=== PATIENT | male | born 1940 | race Caucasian/White ===

== ENCOUNTER → 2017-10-03 09:40 | Outpatient (CLI) | payer MEDICARE, OTHER, SELFPAY ==
[2017-10-03 13:10] LABS: Cholesterol 202 mg/dL (50-200); HDL Cholesterol 45 mg/dL (40-60); LDL CHOLESTEROL 80 mg/dL (<100); Triglyceride 307 mg/dL (30-150)
== END ==
PROVIDERS: PCP Emergency Medicine; Visit Provider Emergency Medicine
DX: E78.5 Hyperlipidemia, unspecified (principal); R73.09 Other abnormal glucose
CPT/HCPCS: 36415; 80061; 83721; 83036

== ENCOUNTER → 2017-10-08 11:00 | Outpatient (CLI) | payer MEDICARE, OTHER, SELFPAY | PROVIDERS: PCP Emergency Medicine; Visit Provider Internal Medicine Interventional Cardiology | DX: I21.4 Non-ST elevation (NSTEMI) myocardial infarction (principal); E78.5 Hyperlipidemia, unspecified; G47.30 Sleep apnea, unspecified | CPT/HCPCS: 99213 ==

== ENCOUNTER 2018-02-20 10:30 | Outpatient (CLI) | payer MEDICARE, SELFPAY ==
[2018-02-20 11:37] LABS: HCT 42.3 % (40.0-50.0); HGB 14.1 g/dL (13.5-17.5); Mean Corp. HGB Concentration 33.3 g/dL (32.0-36.0); Mean Corpuscular Hemoglobin 30.4 pg (27.0-33.0); Mean Corpuscular Volume 91.2 fL (80-95); Mean Platelet Volume 10.8 fL (8.0-11.0); Platelet Count 184 x1000/uL (130-400); RBC 4.64 m/cumm (4.50-6.00); RBC Distribution Width 13.2 % (11.8-14.1); White Blood Cell Count 6.25 k/cumm (4.4-10.8)
[2018-02-20 12:04] LABS: ALT 34 U/L (12-78); AST 23 U/L (15-37); Albumin 3.3 g/dL (3.4-5.0); Alkaline Phosphatase 100 U/L (46-116); Amylase 39 U/L (25-115); Anion Gap 7.7 mmol/L (3-11); BUN 12 mg/dL (7-18); Bilirubin, Total 0.4 mg/dL (0.2-1.0); CO2 26.3 mmol/L (21.0-32.0); Calcium 8.6 mg/dL (8.5-10.1); Chloride 103 mmol/L (98-107); Glucose 138 mg/dL (70-100); Lipase 151 U/L (73-393); Potassium 4.3 mmol/L (3.5-5.1); Sodium 137 mmol/L (136-145)
== END 2018-02-20 10:50 ==
PROVIDERS: PCP Emergency Medicine; Visit Provider Emergency Medicine
DX: K21.9 Gastro-esophageal reflux disease without esophagitis (principal); E78.5 Hyperlipidemia, unspecified
CPT/HCPCS: 36415; 80053; 83690; 85027; 82150

== ENCOUNTER 2018-03-21 02:34 | Outpatient (CLI) | payer MEDICARE, OTHER, SELFPAY ==
[2018-03-21 10:37] LABS: ALT 34 U/L (12-78); AST 16 U/L (15-37); Albumin 3.3 g/dL (3.4-5.0); Alkaline Phosphatase 98 U/L (46-116); Bilirubin, Total 0.6 mg/dL (0.2-1.0); Cholesterol 202 mg/dL (50-200); HDL Cholesterol 49 mg/dL (40-60); LDL CHOLESTEROL 63 mg/dL (<100); Triglyceride 283 mg/dL (30-150)
[2018-03-21 10:52] LABS: Bilirubin, Direct 0.11 mg/dL (0.00-0.20)
== END 2018-03-21 02:54 ==
PROVIDERS: PCP Emergency Medicine; Visit Provider Internal Medicine Interventional Cardiology
DX: E78.5 Hyperlipidemia, unspecified (principal)
CPT/HCPCS: 36415; 80061; 80076; 83721

== ENCOUNTER 2018-09-02 00:39 | Outpatient (CLI) | payer MEDICARE, OTHER, SELFPAY ==
--- NOTE | 2018-09-02 13:24 | DI.CT_ITS ---
SYMPTOM/DIAGNOSIS: 5 MONTHS LEFT SCIATICA. BACK PAIN M54.[address] LUMBAR SPINE AND SACROILIAC JOINTS: Multiple contiguous axial images of the lumbar spine through the sacroiliac joints were obtained. Sagittal and coronal reformatted images were evaluated on the Siemens work station. At L5-S1 there is a vacuum disc, end plate sclerosis and end plate osteophytes. Disc space narrowing is seen. At L4-L5 there is a vacuum disc and mild disc space narrowing. End plate osteophytes are present. No spondylolysis or spondylolisthesis is seen. No suspicious lytic or sclerotic lesions are identified. There are mild degenerative changes seen at the sacroiliac joints. No ankylosis or erosions are identified. At L5-S1 there is mild to moderate central spinal canal stenosis and mild right and moderate left neuroforaminal stenosis. At L4-L5, no significant central spinal canal stenosis is seen. There is moderate bilateral neuroforaminal stenosis. At L3-L4 there is a diffuse disc bulge resulting in mild narrowing of the central spinal canal. There is mild bilateral neuroforaminal narrowing present. At L2-L3 there is no focal disc herniation or significant central spinal canal or neuroforaminal stenosis. At L1-L2 there is no focal disc herniation, central spinal canal or neuroforaminal stenosis. IMPRESSION: 1. 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 2. Degenerative changes seen at the sacroiliac joints. No evidence of ankylosis or erosion.
== END 2018-09-02 00:59 ==
PROVIDERS: PCP Emergency Medicine; Visit Provider Emergency Medicine
DX: M54.42 Lumbago with sciatica, left side (principal); M47.27 Other spondylosis with radiculopathy, lumbosacral region; M53.3 Sacrococcygeal disorders, not elsewhere classified
CPT/HCPCS: 72131

== ENCOUNTER 2018-10-29 13:18 | Outpatient (CLI) | payer MEDICARE, OTHER, SELFPAY ==
--- NOTE | 2018-10-29 06:00 | DI.RAD_ITS ---
EXAM: XR PAIN CLINIC LUMBAR SP 2V CLINICAL HISTORY: Lumbar Epidural Steroid Injection. TECHNIQUE: 2D and realtime digital imaging was performed. COMPARISON: No exams were available for comparison FINDINGS: Images submitted from the pain clinic demonstrate positioning of a needle over the midline at the lev el the L5-S1 disc in conjunction with an epidural steroid injection. Please see Dr. Sam's procedure report for further information. IMPRESSION:
[2018-10-29 13:25] VITALS: BP 147/81; PULSE 60; RESP 20; TEMP 37.1; O2SAT 98
[2018-10-29 13:53] VITALS: PULSE 58; RESP 17; O2SAT 95
--- NOTE | 2018-10-29 13:56 | PDOC.PAIN ---
Pain Clinic Procedure Note Procedure Note Procedure Note: Lumbar Epidural Steroid Injection Procedure Note COMMENTS:I did review his note from Ms. Bentley and his most recent lumbar spine MRI. DX: Lumbosacral radiculitis JUNAID MAYER has been referred to the [facility] for lumbar epidural steroid injection. The patient was greeted by the nurse who verified patients name and . Patient was then taken to the fluoroscopy suite. The patient was interviewed and the medial record reviewed. There were no medical, pharmacologic, radiographic, or other structural contraindications to attempting fluoroscopically guided lumbar epidural steroid injection. Risks and expected side effects as well as potential benefits of the procedure were reviewed and voiced concerns expressed. The patient consent form was signed and witnessed. Standard patient time-out procedure was performed. LThe patient was placed in the prone position on the fluoroscopy table and automated blood pressure cuff and pulse oximeter applied. The skin entry point for entering/approaching the epidural space at L5-S1 and marked. Following thorough chlorhexadine preparation of the skin and draping and 1% lidocaine infiltration of the skin entry point and subcutaneous tissues, a 18 gauge Touhy needle was placed under fluoroscopic guidance and with loss of resistance technique into the epidural space. Needle tip placement and depth were aided and confirmed by fluoroscopy. There was no paresthesia or return of blood or CSF through the needle. 1 cc's of Omnipaque 240 was injected with clear epidural spread confirmed with fluoroscopy. 80mg depomedrol was injected. There was not any unusual discomfort expressed by JUNAID MAYER. Patient's vital signs were stable throughout the procedure and were as recorded in nursing records. Follow up plans and appointments were discussed with patient. Post procedure instruction was given as documented in nursing records and having met discharge criteria and was discharged from the [facility]. COMMENTS: If this procedure is helpful, it can be completed up to 3 times per 12 months.
[2018-10-29] MEDS: methylPREDNISolone ACETATE 40 MG/ML VIAL IJ (13:57)
[2018-10-29] MEDS: Omnipaque 240 MG/ML 50 ML BTL IJ (13:58)
== END 2018-10-29 13:38 ==
PROVIDERS: PCP Emergency Medicine; Visit Provider Preventive Medicine Occupational Medicine
DX: M54.17 Radiculopathy, lumbosacral region (principal)
CPT/HCPCS: 62323; 72100; J1030; Q9967

== ENCOUNTER 2019-01-14 11:39 | Outpatient (CLI) | payer MEDICARE, OTHER, SELFPAY ==
[2019-01-14 11:49] VITALS: BP 129/82; PULSE 61; RESP 18; TEMP 36.8; O2SAT 98
[2019-01-14] MEDS: Omnipaque 240 MG/ML 50 ML BTL IJ (12:17)
[2019-01-14] MEDS: Dexamethasone Sod. Phos./Pres-Free 10 MG/ML VIAL IJ (12:17)
--- NOTE | 2019-01-14 12:20 | PDOC.PAIN_ITS ---
Pain Clinic Procedure Note Procedure Note Procedure Note: PROCEDURE NOTE Transforaminal Epidural Steroid Injection with Fluoroscopic Guidance at left L5 Chief Complaint: left leg pain, posterior buttock, calf pain Pre-operative diagnosis: lumbar radiculopathy Post-operative diagnosis: same as above JUNAID MAYER has been referred to the [facility] for Lumbar Transforaminal Epidural Steroid Injection left L5 TFESI COMMENTS: Pre-procedure VAS: 5/10 to the left leg. Follow up plan: if this fails to achieve significant pain relief, follow up with Ms Tatiana Bentley APRN. JUNAID MAYER was greeted by the nurse who verified patients name and . Patient was then taken to the fluoroscopy suite. JUNAID was interviewed and the medical record reviewed. There were no medical, pharmacologic, radiographic or other structural contraindications to attempting fluoroscopically guided transforaminal lumbar epidural steroid injection. The risks, benefits, and potential side effects were reviewed with the patient. Risk include, but not limited to, post dural puncture, headache, infection, nerve injury, allergic reaction, possible increase in symptoms over the ensuing 24 to 48 hours, and paralysis. The patient appeared to understand, questions were answered and the patient agreed to proceed. Once I obtained informed verbal consent, the printed consent form was signed by the patient and myself. Standard time-out procedure was performed. TECHNIQUE: After informed written consent was obtained the patient was placed in the prone position. The lumbar spine was prepped with chloraprep and draped. Sterile technique was observed during the entire procedure ( cap, gloves, and mask were worn). Vitals signs were monitored throughout the procedure. The left side was marked with a radioopaque marker. The skin and subcutaneous structures were anesthetized with lidocaine 1% to a total volume of 3 ML at each level. Under fluoroscopic guidance, in ipsilateral oblique view, co-axial approach, 22 gauge 5'' spinal needle(s) were advanced to the base of the L5. pedicle(s). The needle(s) were advanced to the superio-posterior aspect of the neural perfecto en under lateral view. Oblique and AP views were rechecked. Under AP view Omnipaque 240 1 cc's was injected while visualized with fluoroscopy. There was no evidence of intravascular uptake, the epidural space was delineated. 15 mg Dexamethasone was injected after negative aspiration, at each level, followed by lidocaine 1% 1.0-ML at each level. (49 cc of Omnipaque was wasted) Outcome: The patient tolerated the procedure well and had stable vital signs. The patient noted after getting up after the procedure that their left leg pain was at a 3 out of 10 level. Follow up plans and appointments were discussed with JUNAID . 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 The patient received written instructions as documented in nursing records. Disposition: JUNAID was discharged from the procedure suite without new neurological complaints. Follow-up: Follow up with as scheduled or PRN. I personally performed the entire procedure. ROGER BECKER MD ABPN-subspecialty board certification in Pain Medicine Attending Physician-Pain Management
[2019-01-14 12:23] VITALS: BP 146/90; PULSE 69; RESP 16; O2SAT 96
--- NOTE | 2019-01-14 13:15 | DI.RAD_ITS ---
EXAM: XR PAIN CLINIC LUMBAR SP 2V CLINICAL HISTORY: Dx: Lumbar Radiculopathy TECHNIQUE: Realtime digital imaging was performed. Fluoro time: 36.6 sec, 15.29 mGy COMPARISON: No exams were available for comparison FINDINGS: Fluoroscopy was utilized by Dr. Mendenhall during the performance of a transforaminal steroid injection. Ple ase refer to the procedure report for complete details.
== END 2019-01-14 11:59 ==
PROVIDERS: PCP Emergency Medicine; Visit Provider Internal Medicine
DX: M54.16 Radiculopathy, lumbar region (principal)
CPT/HCPCS: 64483; 72100; Q9967

== ENCOUNTER 2019-04-09 12:07 | Outpatient (CLI) | payer MEDICARE, OTHER, SELFPAY ==
[2019-04-09 12:46] LABS: HCT 43.4 % (40.0-50.0); HGB 14.5 g/dL (13.5-17.5); Mean Corp. HGB Concentration 33.4 g/dL (32.0-36.0); Mean Corpuscular Hemoglobin 30.3 pg (27.0-33.0); Mean Corpuscular Volume 90.6 fL (80-95); Mean Platelet Volume 10.8 fL (8.0-11.0); Platelet Count 203 x1000/uL (130-400); RBC 4.79 m/cumm (4.50-6.00); RBC Distribution Width 13.4 % (11.8-14.1); White Blood Cell Count 7.72 k/cumm (4.4-10.8)
[2019-04-09 13:26] LABS: Anion Gap 7.8 mmol/L (3-11); BUN 13 mg/dL (7-18); CO2 28.2 mmol/L (21.0-32.0); CREATININE 0.73 mg/dL (0.70-1.30); Calcium 9.2 mg/dL (8.5-10.1); Chloride 103 mmol/L (98-107); Glucose 106 mg/dL (74-106); Potassium 4.5 mmol/L (3.5-5.1); Sodium 139 mmol/L (136-145)
== END 2019-04-09 12:27 ==
PROVIDERS: PCP Emergency Medicine; Visit Provider Family Medicine
DX: I10 Essential (primary) hypertension (principal); M54.16 Radiculopathy, lumbar region; Z01.818 Encounter for other preprocedural examination
CPT/HCPCS: 36415; 80048; 85027

== ENCOUNTER → 2019-10-03 10:59 | Outpatient (BNVA) | payer MEDICARE, OTHER, SELFPAY | PROVIDERS: PCP Emergency Medicine; Referring Provider Emergency Medicine; Visit Provider Physical Therapy Assistant | DX: Z12.11 Encounter for screening for malignant neoplasm of colon (principal); Z86.010 Personal history of colon polyps; I10 Essential (primary) hypertension ==

== ENCOUNTER 2019-10-31 06:17 | Day surgery (SDC) | payer MEDICARE, OTHER, SELFPAY ==
[2019-10-31 06:35] VITALS: BP 141/80; PULSE 65; RESP 16; TEMP 36.4; O2SAT 95
[2019-10-31] MEDS: Lactated Ringers 1,000 ML 80 ML IV (07:02)
--- NOTE | 2019-10-31 07:22 | W.PM.DSUDISC ---
Discharge Plan Disposition Patient Disposition: HOME Condition: Good Discharge Details Reason For Visit: Colonoscopy Attending Provider: Mily Butt Primary Care Provider: Candido Figueroa Home Meds and New Rx's Prescriptions: Continued atorvastatin 80 mg tablet 80 mg PO QHS RF: 0 triamcinolone acetonide 80 GM ointment 80 gm Topical BID Qty: 1 RF: 2 aspirin [Aspir-81] 81 MG tablet,delayed release (DR/EC) 81 mg PO DAILY Qty: 90 RF: 4 nitroglycerin 0.4 mg tablet, sublingual 0.4 mg Sublingual PRN Qty: 20 RF: 1 acetaminophen 500 mg capsule 1,000 mg PO QID PRNRF: 0 finasteride 5 mg tablet 5 mg PO DAILY Qty: 90 RF: 3 metoprolol succinate 50 mg tablet extended release 24 hr 50 mg PO DAILY Qty: 90 RF: 3 omeprazole 40 mg capsule,delayed release(DR/EC) 40 mg PO DAILY Qty: 90 RF: 3 escitalopram oxalate 20 mg tablet 20 mg PO DAILY Qty: 90 RF: 3 Discontinued polyethylene glycol 3350 17 gram/dose powder 238 g PO ONCE Qty: 238 RF: 0 bisacodyl [Dulcolax (bisacodyl)] 5 mg tablet,delayed release (DR/EC) 5 mg PO ONCE Qty: 4 RF: 0 Discharge Instructions Additional Instructions: Findings: Two small polyps were removed. My office will send a letter with biopsy results. Follow up: If the biopsy results show an adenomatous polyp, you may consider a colonoscopy again in 5-7 years depending on overall health. Please call if you develop: fevers >101.5 Nausea or Vomiting Abdominal pain that is not transient DAY SURGERY UNIT POST COLONOSCOPY INSTRUCTIONS 1. Because there will be medication in your system for the next 24 hours, you may feel a little sleepy. Your coordination will be affected. Therefore: a. Do not drive or operate dangerous equipment for 24 hours. b. Do not drink alcohol beverages for 24 hours (not even beer). c. Plan to go home and rest for the day. 2. Generally there are no restrictions on your activity after a day or so has gone by, but you may feel a bit fatigued for a few days. 3 After you arrive home you may have a light meal and return to a normal diet as you can tolerate it without feeling sick to your stomach. 4. After surgery, you may feel pain or discomfort. This should be only transient, but if it persists please contact your doctor. 5. If there are any questions regarding the findings of your procedure, please feel free to contact your doctor. 6. If you are unable to contact your doctor with a problem, contact the hospital at [phone]. 7. Continue all your regular medications unless directed otherwise. I understand the above instructions and have no questions. Signature of Patient or Responsible Adult Escort Date/Time Name of Responsible Adult Escort Signature of Nurse Date/Time Activity:: Activity as Tolerated Diet:: As Tolerated Discharge Orders Discharge Orders: Discharge Order (Routine); Ordered 10/31/19 Ordered By: Mily Butt DS: Diagnosis Discharge Diagnosis (1) Colon polyps: Status: Acute
--- NOTE | 2019-10-31 07:23 | W.COLOREPORT ---
Date of service: 10/31/19 Time of Service: 08:07 Colonoscopy Report Date of procedure: 10/31/19 Pre-op diagnosis general: History of colon polyp Post-op diagnosis procedure note: other (Colon polyps times two) Procedure: Colonoscopy with cold forceps polypectomy Surgeon: Mily Butt Anesthesia proc note operative: MAC Indications: This 79 year old man presents for colonoscopy. He had a tubular adenoma removed in 2014. No FH colon cancer or symptoms. Procedure Description: The patient was placed in the left Patel position. Propofol was titrated to sedation. Digital rectal examination revealed no abnormalities. The scope was advanced to the cecum without difficulty. The ileocecal valve and appendiceal orifice were clearly identified. The prep was good. The scope was slowly withdrawn over the course of greater than 6 minutes. A tiny polyp was removed from the transverse colon with the cold forceps. No abnormalities seen in the ascending, descending or sigmoid colon. A less than 1cm polyp was removed with the cold forceps from the rectum. It was otherwise normal including on retroflexed view. The patient tolerated the procedure well and was stable to recovery. If the polyps are adenomatous, follow up colonoscopy can be considered in 5-7 years depending on overall health.
--- NOTE | 2019-10-31 07:43 | BOWEL_PTH ---
PATIENT: Jesús Phillips LOC: [facility] U#:[id number] AGE/SX: 79/M ROOM: RE10/31/[address]: Mily Butt MD : 1940 BED: DIS: 10/31/2019 SPEC #: [id number] RECD: 10/31/19 12:50 STATUS: RAISA REQ #: [id number] ALISON: 10/31/19 07:[address]: Mily Butt DEPT: Surgical Specimen RECD BY: Merna Escudero ENTERED: 10/31/19 12:51 SP TYPE: Bowel OTHR DR: Candido Figueroa DO Tissues: 1 - BIOPSY BOWEL 2 - BIOPSY BOWEL Procedures: GROSS AND MICRO LEVEL 4 Comments: [id number]
[2019-10-31 08:38] VITALS: BP 132/79; PULSE 63; RESP 16; TEMP 36.5; O2SAT 94
== END 2019-10-31 08:50 | disposition home or self-care (01) ==
PROVIDERS: PCP Emergency Medicine; Visit Provider Surgery
PROC: 0DJD8ZZ Inspection of Lower Intestinal Tract, Via Natural or Artificial Opening Endoscopic (ICD-10-PCS; CPT 45378; principal; 2019-10-31 07:30)
DX: Z12.11 Encounter for screening for malignant neoplasm of colon (principal); D12.8 Benign neoplasm of rectum; Z86.010 Personal history of colon polyps
CPT/HCPCS: 45380; 88305; J2001

== ENCOUNTER 2020-05-20 02:06 | Outpatient (CLI) | payer MEDICARE, OTHER, SELFPAY ==
[2020-05-20 10:35] LABS: Calculated LDL 85 mg/dL (<100); Cholesterol 185 mg/dL (<200); HDL Cholesterol 54 mg/dL (40-60); Triglyceride 233 mg/dL (<150)
== END 2020-05-20 02:07 | disposition home or self-care (01) ==
LOC: LBO 02:06
PROVIDERS: PCP Emergency Medicine; Visit Provider Emergency Medicine
DX: I25.10 Atherosclerotic heart disease of native coronary artery without angina pectoris (principal)
CPT/HCPCS: 36415; 80061

== ENCOUNTER 2021-06-07 06:01 | Outpatient (CLI) | payer MEDICARE, SELFPAY ==
[2021-06-07 12:25] LABS: HGB 13.9 g/dL (13.5-17.5); MCH 30.5 pg (27.0-33.0); MCHC 33.1 % (32.0-36.0); MCV 92.3 fL (80-95); MPV 10.6 fL (8.0-11.0); Platelet Count 186 10^3/uL (130-400); RBC 4.55 10^6/uL (4.36-5.78); RDW-SD 44.2 fL
[2021-06-07 13:30] LABS: ALT 25 U/L (16-63); AST 17 U/L (15-37); Albumin 3.4 g/dL (3.4-5.0); Alkaline Phosphatase 94 U/L (46-116); Amylase 40 U/L (25-115); Anion Gap 4.1 mmol/L (3-11); BUN 14 mg/dL (7-18); Bilirubin, Total 0.6 mg/dL (0.2-1.0); CO2 29.9 mmol/L (21.0-32.0); CREATININE 0.8 mg/dL (0.70-1.30); Calcium 8.8 mg/dL (8.5-10.1); Chloride 102 mmol/L (98-107); Glucose 101 mg/dL (74-106); Lipase 106 U/L (73-393); Potassium 4.1 mmol/L (3.5-5.1); Sodium 136 mmol/L (136-145); Total Protein 7.1 g/dL (6.4-8.2)
== END 2021-06-07 06:02 | disposition home or self-care (01) ==
LOC: LBO 06:01
PROVIDERS: Emergency Medicine; PCP Family Medicine; Visit Provider Family Medicine
DX: R01.1 Cardiac murmur, unspecified (principal); R10.13 Epigastric pain
CPT/HCPCS: 36415; 80053; 83690; 85027; 82150

== ENCOUNTER → 2021-06-09 01:57 | Outpatient (CLI) | payer MEDICARE, SELFPAY ==
--- NOTE | 2021-06-09 07:00 | DI.US_ITS ---
Exam(s) US ABDOMEN EXAM: US ABDOMEN INDICATION: epigastric pain,R10.13 COMPARISON: US ABDOMEN ULTRASOUND (P) from 03/04/2013 TECHNIQUE: Ultrasound abdomen performed using standard protocol FINDINGS: Abdominal ultrasound was performed according to the usual protocol. The liver is normal in size and shape. No focal hepatic lesion seen. There is no evidence of cholelithiasis or biliary dilatation. No gallbladder wall thickening or peric holecystic fluid collection. Portal venous flow is hepatopetal. Pancreas appears intact as visualized. Spleen is unremarkable in appearance with no focal lesion. Kidneys are normal in size and shape. No renal mass, hydronephrosis, or nephrolithiasis. Abdominal aorta and IVC are of normal diameter. IMPRESSION: Negative abdominal ultrasound .
== END ==
PROVIDERS: PCP Family Medicine; Visit Provider Emergency Medicine
DX: R10.13 Epigastric pain (principal)
CPT/HCPCS: 76700

== ENCOUNTER 2021-09-30 09:55 | Outpatient (CLI) | payer MEDICARE, SELFPAY ==
[2021-09-30 10:59] LABS: Calculated LDL 82 mg/dL (<100); Cholesterol 202 mg/dL (<200); HDL Cholesterol 51 mg/dL (40-60); Triglyceride 347 mg/dL (<150)
== END 2021-09-30 09:56 | disposition home or self-care (01) ==
LOC: LBO 09:56
PROVIDERS: PCP Family Medicine; Visit Provider Family Medicine
DX: E78.5 Hyperlipidemia, unspecified (principal)
CPT/HCPCS: 36415; 80061

== ENCOUNTER 2022-05-04 10:20 | Outpatient (CLI) | payer MEDICARE, SELFPAY ==
--- NOTE | 2022-05-04 10:15 | RT.EKG_ITS ---
APPROVED REPORT Exam: Resting ECG Reason for Exam: Pre-Op Patient Location: O HR:57 bpm ECG Measurements Heart Rate 57 AXIS WI 168 P 22 QRSd 100 QRS -67 QT 425 T 27 QTc 414 Conclusion Sinus arrhythmia...V-rate 51- 63, variation>10% Left anterior fascicular block Low voltage
== END 2022-05-04 10:21 | disposition home or self-care (01) ==
LOC: DI.CM 10:20
PROVIDERS: PCP Family Medicine; Visit Provider Family Medicine
DX: R07.9 Chest pain, unspecified (principal); Z01.818 Encounter for other preprocedural examination; I44.4 Left anterior fascicular block
CPT/HCPCS: 93010

== ENCOUNTER 2022-10-06 01:08 | Outpatient (CLI) | payer MEDICARE, SELFPAY ==
[2022-10-06 09:57] LABS: BUN 15 mg/dL (7-18); CREATININE 0.8 mg/dL (0.70-1.30); Calculated LDL 86 mg/dL (<100); Chloride 100 mmol/L (98-107); Cholesterol 193 mg/dL (<200); Estimated GFR 88.91 (mL/min/1.73m2); Glucose 105 mg/dL (74-106); HDL Cholesterol 54 mg/dL (40-60); Potassium 4.1 mmol/L (3.5-5.1); Sodium 136 mmol/L (136-145); Triglyceride 267 mg/dL (<150)
== END 2022-10-06 01:09 | disposition home or self-care (01) ==
PROVIDERS: PCP Family Medicine; Visit Provider Family Medicine
DX: E87.1 Hypo-osmolality and hyponatremia (principal); E78.5 Hyperlipidemia, unspecified
CPT/HCPCS: 36415; 80048; 80061

== ENCOUNTER 2023-04-12 13:23 | Outpatient (CLI) | payer MEDICARE, SELFPAY ==
--- NOTE | 2023-04-12 13:15 | RT.EKG_ITS ---
APPROVED REPORT Exam: Resting ECG Reason for Exam: Pre-Op R TKA Patient Location: O HR:53 bpm ECG Measurements Heart Rate 53 AXIS SC 163 P 35 QRSd 100 QRS 126 QT 438 T 25 QTc 412 Conclusion Sinus arrhythmia...V-rate 41- 60, variation>10% Right axis deviation...QRS axis ( 91,269) Borderline low voltage, extremity leads...all extremity leads <0.6mV
== END 2023-04-12 13:24 | disposition home or self-care (01) ==
LOC: DI.CM 13:23
PROVIDERS: PCP Family Medicine; Visit Provider Family Medicine
DX: Z01.818 Encounter for other preprocedural examination (principal)
CPT/HCPCS: 93010

== ENCOUNTER 2023-10-09 09:43 | Outpatient (CLI) | payer MEDICARE, SELFPAY ==
[2023-10-09 12:26] LABS: CREATININE 0.9 mg/dL (0.70-1.30); Calculated LDL 45 mg/dL (<100); Cholesterol 144 mg/dL (<200); Estimated GFR 85.27 (mL/min/1.73m2); HDL Cholesterol 53 mg/dL (40-60); Potassium 3.6 mmol/L (3.5-5.1); Triglyceride 230 mg/dL (<150)
[2023-10-09 20:08] LABS: Hepatitis C Ab w Rflx HCV PCR Negative (Negative)
== END 2023-10-09 09:44 | disposition home or self-care (01) ==
LOC: LOS 09:44
PROVIDERS: PCP Family Medicine; Referring Provider Family Medicine; Visit Provider Family Medicine
DX: E78.5 Hyperlipidemia, unspecified (principal); I10 Essential (primary) hypertension; Z11.59 Encounter for screening for other viral diseases
CPT/HCPCS: 36415; 80061; 86803; 82565; 84132

== ENCOUNTER 2024-07-01 16:31 | Outpatient (CLI) | payer MEDICARE, SELFPAY ==
[2024-07-01 17:03] LABS: Abs Immature Grans 0.05 10^3/uL (0.0-0.06); Absolute Basophil Count 0.08 10^3/uL (0.0-0.2); Absolute Eosinophil Count 0.52 10^3/uL (0.0-0.7); Absolute Lymphocyte Count 1.47 10^3/uL (1.2-3.4); Absolute Monocyte Count 0.76 10^3/uL (0.1-0.8); Absolute Neutrophil Count 4.83 10^3/uL (1.2-6.7); Eosinophils % 6.7 %; HGB 13.6 g/dL (13.5-17.5); Immature Grans % 0.6 %; Lymphocytes % 19.1 %; MCH 30.6 pg (27.0-33.0); MCV 90 fL (80-95); Monocytes % 9.9 %; Neutrophils % 62.7 %; Platelet Count 232 10^3/uL (130-400); RBC 4.45 10^6/uL (4.36-5.78); RDW 13.4 % (11.8-14.1); RDW-SD 44.3 fL; WBC 7.71 10^3/uL (4.4-10.8)
[2024-07-01 18:37] LABS: ALT 22 U/L (16-63); AST 22 U/L (15-37); Albumin 3.5 g/dL (3.4-5.0); Alkaline Phosphatase 89 U/L (46-116); Anion Gap 6.4 mmol/L (3-11); BUN 17 mg/dL (7-18); Bilirubin, Total 0.3 mg/dL (0.2-1.0); CO2 27.6 mmol/L (21.0-32.0); Calcium 8.6 mg/dL (8.5-10.1); Chloride 102 mmol/L (98-107); Estimated GFR 74.68 (mL/min/1.73m2); Glucose 124 mg/dL (74-106); Potassium 4.2 mmol/L (3.5-5.1); Sodium 136 mmol/L (136-145); Total Protein 7.3 g/dL (6.4-8.2)
[2024-07-02 18:01] LABS: Lab Add On Test DONE
[2024-07-02 18:55] LABS: Hemoglobin A1C 6.1 % (<5.7)
== END 2024-07-01 16:32 | disposition home or self-care (01) ==
LOC: LBO 16:34
PROVIDERS: PCP Family Medicine; Visit Provider Family Medicine
DX: R10.9 Unspecified abdominal pain (principal); D64.9 Anemia, unspecified; R73.9 Hyperglycemia, unspecified
CPT/HCPCS: 36415; 80053; 83036; 85025

== ENCOUNTER 2024-07-10 02:34 | Outpatient (CLI) | payer MEDICARE, SELFPAY ==
--- NOTE | 2024-07-10 07:00 | DI.NM_ITS ---
APPROVED REPORT Exam: Exercise Treadmill Patient Location: Out-Patient Room/Bed: Stress Nurse: Melinda Daugherty RN Ordering Provider:NASIM VANESSA, Contact Number: [phone] BMI: 36.01 Baseline Rhythm: Sinus Bradycardia Indications: dyspnea on exertion Medical History Medical History: CAD, [place], [place], HLD, heart murmur, anxiety, BPH, HTN, [facility], depression, GERD Cardiac Medications: aspirin, atorvastatin, nitroglycerin, finasteride, hydrochlorothiazide, escitalo pram, metorpolol succinate, fenofibrate, omeprazole Allergies: clopidogrel, hycosamine, amlodipine, codeine, ibuprofen Cardiac Risk Factors: family hx, HTN, HLD, former smoker, CVD, obesity Previous Cardiac Procedures: coronary stent x2 (2014) Pretest Chest Pain Characteristics: No chest pain Exercise History: Indeterminate Physical Disabilities: Knees Lung Sounds: Clear to auscultation Heart Sounds: Irregular Stress Test Details Test: Exercise stress testing was performed using a Shimon protocol. Nuclear Acquisition: Rest Tc-99m/Stress Tc-99m 1 day Rest Isotope: Tc-99m Sestamibi. Dose: 11.5 Date: 07/10/2024 Injection Time: 1110 Stress Isotope: Tc-99m Sestamibi. Dose: 35.0 Date: 07/10/2024 Injection Time: 1240 HR Resting HR Supine: 51 bpm Max Heart Rate (APMHR): 137 bpm Resting HR Standin bpm Target HR (85% APMHR): 116 bpm Max HR Achieved: 130 bpm % of APMHR: 95 Recovery HR: 63 bpm HR response to stress: Normal HR response to stress BP Resting BP Supine: 140/88 mmHg Resting BP Standin/78 mmHg Max BP: 174/82 mmHg Recovery BP: 150/76 mmHg BP response to stress: Normal blood pressure response to stress. ECG Resting ECG: Sinus Bradycardia Ectopy: frequent PACs, occasional PVCs/bigeminy Stress ECG: Sinus Tachycardia ST Change: No significant ST segment changes noted Arrhythmia: frequent PACs, occasional PVCs Recovery ECG: Sinus Rhythm Recovery ST Change: No significant ST segment changes noted Recovery Arrhythmia: frequent PACs, frequent PVCs/bigeminy Clinical Reason for Termination: Target HR Achieved Stress Symptoms: Dyspnea Exercise duration: 04 min49 sec Highest Stage Reached: Stage 2: 2.5 mph at 12% grade. Exercise capacity: 6.81 METs Angina Score: None Rate Pressure Product: [id number] Stress ECG Conclusion 1. Resting electrocardiogram shows low voltage 2. Patient exercised on the Shimon protocol and completed a workload of 6 METS 3. Normal heart rate and blood pressure response to exercise. The patient achieved 95% of maximal pr edicted heart rate for age 4. There was no electrocardiographic evidence of myocardial ischemia 5. Atrial and ventricular ectopic beats were noted 6. See MPI report Stress Test Summary STAGE Time (mins) Speed (mph) Grade (%) HR BP SpO2 SYMPTOMS METS Supine 51 140/88 96 Standing 56 170/78 1 3 1.7 10 104 90 4.5 2 6 2.5 12 129 7 1 min recovery 104 170/70 92 mild SOB 3 min recovery 69 174/82 96 mild SOB 6 min recovery 63 150/76 96 SOB resolved by end of test; pt left ambulatory in no acute distress MPI Conclusion Myocardial perfusion is normal. There is no ischemia or evidence of prior infarction Ejection fraction is 56% with normal wall motion
== END 2024-07-10 02:54 ==
LOC: DI 02:34
PROVIDERS: PCP Family Medicine; Visit Provider Internal Medicine Cardiovascular Disease
DX: R06.09 Other forms of dyspnea (principal)
CPT/HCPCS: 78452; 93016; 93018; 93017